=== PATIENT | female | born 1975 | race Caucasian/White ===

== ENCOUNTER → 2021-10-03 17:01 | Outpatient (BNVA) | payer OTHER, SELFPAY | PROVIDERS: Family Provider Family Medicine; Visit Provider Emergency Medicine | DX: M79.672 Pain in left foot (principal) | CPT/HCPCS: 73630 ==

== ENCOUNTER → 2023-01-09 11:29 | Outpatient (BNVA) | payer BC, MEDICAID, SELFPAY | PROVIDERS: Family Provider Family Medicine; PCP Pediatrics; Visit Provider Nurse Practitioner Family | DX: M25.531 Pain in right wrist (principal) | CPT/HCPCS: 73110 ==

== ENCOUNTER → 2023-05-17 15:28 | Outpatient (BNVA) | payer BC, MEDICAID, SELFPAY | PROVIDERS: Family Provider Family Medicine; PCP Pediatrics; Visit Provider Nurse Practitioner Family | DX: M25.532 Pain in left wrist (principal); M25.522 Pain in left elbow; M25.552 Pain in left hip; W05.1XXA Fall from non-moving nonmotorized scooter, initial encounter | CPT/HCPCS: 73080; 73110; 73502 ==

== ENCOUNTER → 2023-05-26 16:13 | Outpatient (BNVA) | payer BC, MEDICAID, SELFPAY | PROVIDERS: Family Provider Family Medicine; PCP Pediatrics; Visit Provider Nurse Practitioner Family | DX: S69.92XA Unspecified injury of left wrist, hand and finger(s), initial encounter (principal); W05.1XXA Fall from non-moving nonmotorized scooter, initial encounter | CPT/HCPCS: 73130 ==

== ENCOUNTER → 2023-06-23 14:12 | Outpatient (BNVA) | payer BC, MEDICAID, SELFPAY | PROVIDERS: Family Provider Family Medicine; PCP Pediatrics; Visit Provider Nurse Practitioner Family | DX: S62.347A Nondisplaced fracture of base of fifth metacarpal bone, left hand, initial encounter for closed fracture; S62.305A Unspecified fracture of fourth metacarpal bone, left hand, initial encounter for closed fracture; W05.1XXA Fall from non-moving nonmotorized scooter, initial encounter | CPT/HCPCS: 73130 ==

== ENCOUNTER 2023-06-23 16:00 | Outpatient (CLI) | payer BC, MEDICAID, SELFPAY | END 2023-06-23 16:01 | disposition home or self-care (01) | LOC: SPT 16:00 | PROVIDERS: Family Provider Family Medicine; PCP Pediatrics; Visit Provider Nurse Practitioner Family | DX: Z46.89 Encounter for fitting and adjustment of other specified devices (principal); S62.329D Displaced fracture of shaft of unspecified metacarpal bone, subsequent encounter for fracture with routine healing; X58.XXXD Exposure to other specified factors, subsequent encounter | CPT/HCPCS: 97760; L3984 ==

== ENCOUNTER → 2023-07-17 09:03 | Outpatient (BNVA) | payer BC, MEDICAID, SELFPAY | PROVIDERS: Family Provider Family Medicine; PCP Pediatrics; Visit Provider Physician Assistant | DX: S62.347D Nondisplaced fracture of base of fifth metacarpal bone, left hand, subsequent encounter for fracture with routine healing; X58.XXXD Exposure to other specified factors, subsequent encounter | CPT/HCPCS: 73130 ==

== ENCOUNTER → 2024-05-31 13:44 | Outpatient (BNVA) | payer BC, SELFPAY | PROVIDERS: Family Provider Family Medicine; PCP Pediatrics; Referring Provider Registered Nurse Neonatal Intensive Care; Visit Provider Registered Nurse Neonatal Intensive Care | DX: M85.871 Other specified disorders of bone density and structure, right ankle and foot (principal); W01.0XXA Fall on same level from slipping, tripping and stumbling without subsequent striking against object, initial encounter | CPT/HCPCS: 73610; 73630 ==